=== PATIENT | male | born 1980 | race Caucasian/White ===

== ENCOUNTER 2017-09-05 19:33 | Emergency (ER) | payer MEDICARE, MEDICAID ==
[2017-09-05] MEDS ORDERED: Bacitracin Oint 1 GM U/D Packet TOP ONE (20:13)
[2017-09-05] MEDS ORDERED: Diphtheria,Pertussis(Acell),Tetanus Vaccine 0.5 ML SDV IM ONE (21:15)
--- NOTE | 2017-09-05 21:23 | EDM.PDOC ---
ED HPI GENERAL MEDICAL PROBLEM - General Chief Complaint: Laceration Stated Complaint: INDEX FINGER LACERATION Time Seen by Provider: 09/05/17 20:11 Source of Information: Reports: Patient History Limitations: Reports: No Limitations - History of Present Illness INITIAL COMMENTS - FREE TEXT/NARRATIVE: laceration; left 1st finger; this is a 37 year old male presents to ER with and Son, today while in town, window got rolled down, unable to roll back up. He was putting plastic over window til they could get home. He was cutting plastic with a case cutter, slipped and cut the first finger. no other injury. laceration; one hour ago last tet2010. 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 Degenerative Disc Disease - Infectious Disease History Infectious Disease History: Reports: Chicken Pox - Past Surgical History Neurological Surgical History: Reports: Other (See Below) Other Neurological Surgeries/Procedures: decompression Musculoskeletal Surgical History: Reports: None Social & Family History - Tobacco Use Smoking Status *Q: Current Every Day Smoker Years of Tobacco use: 20 Packs/Tins Daily: 0.5 Second Hand Smoke Exposure: Yes - Caffeine Use Caffeine Use: Reports: Coffee, Soda - Recreational Drug Use Recreational Drug Use: No - Living Situation & Occupation Living situation: Reports: , with Family (lives with and children in [place]. disabled due to "unable to feel feet" from sciatica.) Occupation: Disabled ED ROS GENERAL - Review of Systems Review Of Systems: See Below Constitutional: Reports: No Symptoms, Other (finger pain and injury) Skin: Reports: Wound Neurological: Reports: No Symptoms Psychiatric: Reports: No Symptoms Hematologic/Lymphatic: Reports: No Symptoms Immunologic: Reports: No Symptoms ED EXAM, SKIN/RASH Exam: See Below Exam Limited By: No Limitations General Appearance: Alert, WD/WN, No Apparent Distress Head: Atraumatic, Normocephalic Neck: Normal Inspection, Supple, Non-Tender, Full Range of Motion Respiratory/Chest: No Respiratory Distress Cardiovascular: Normal Peripheral Pulses Peripheral Pulses: 2+: Radial (L), Radial (R) Extremities: Normal Inspection, Normal Range of Motion, Normal Capillary Refill , Other (laceration to left 1st finger.) Neurological: Alert, Oriented, Normal Cognition, No Motor/Sensory Deficits Psychiatric: Normal Affect, Normal Mood Skin: Warm, Wound/Incision Location, Skin: Upper Extremity, Left, Other (left first finger) Characteristics: Linear Associated features: Tenderness Lymphatic: No Adenopathy ED SKIN PROCEDURES - Laceration/Wound Repair Left Anterior Midline Finger Lac/Wound length In cm: 3 Appearance: Subcutaneous, Linear, Clean Distal NVT: Neuro & Vascular Intact, No Tendon Injury Anesthetic Type: Local Local Anesthesia - Lidocaine (Xylocaine): 1% Plain Local Anesthetic Volume: 2cc Skin Prep: Chlorhexidine (Hibiciens), Saline, Sterile Drape Saline Irrigation (cc's): 20 Exploration/Debridement/Repair: Wound Explored Closed with: Sutures Suture Size: 4-0 # of Sutures: 14 Suture Type: Prolene Sterile Dressing Applied: Provider Tetanus Status Addressed: Yes Complications: No Course - Vital Signs Last Recorded V/S: Last Vital Signs Temp 36.6 C 09/05/17 20:22 Pulse 71 09/05/17 20:22 Resp 16 09/05/17 20:22 BP 107/56 L 09/05/17 20:22 Pulse Ox 98 09/05/17 20:22 - Orders/Labs/Meds Orders: Active Orders 24 hr Category Date Time Status Vaccines to be Administered [RC] PER UNIT ROUTINE Care 09/05/17 21:15 Active Meds: Medications Discontinued Medications Generic Name Dose Route Start Last Admin Trade Name Freq PRN Reason Stop Dose Admin Bacitracin 1 dose 09/05/17 20:13 09/05/17 20:35 Bacitracin Oint 1 Gm TOP 09/05/17 20:14 1 dose ONETIME ONE Administration Diphtheria/Tetanus/Acell Pertussis 0.5 ml 09/05/17 21:15 09/05/17 21:30 Adacel IM 09/05/17 21:16 0.5 ml .ONCE ONE Administration Lidocaine HCl 5 ml 09/05/17 20:12 09/05/17 20:35 Xylocaine-Mpf 1% INJECT 09/05/17 20:13 5 ml ONETIME ONE Administration - Re-Assessments/Exams Free Text/Narrative Re-Assessment/Exam: 09/05/17 laceration repair; 3 cm, 14 sutures, bandage applied Tdap given in ER wound care discussed, rtc or er if has any concerns or worsen of sx suture out in 10 days Departure - Departure Time of Disposition: 21:41 Disposition: Home, Self-Care 01 Condition: Good Clinical Impression: Broken skin Laceration of finger of left hand Qualifiers: Encounter type: initial encounter Finger: index finger Damage to nail status: without damage Foreign body presence: without foreign body Qualified Code(s): S61.211A - Laceration without foreign body of left index finger without damage to nail, initial encounter - Discharge Information Instructions: Laceration Care, Adult, [id number] Referrals: PCP,None [Primary Care Provider] - Forms: ED Department Discharge Care Plan Goals: laceration of finger -keep in padded bandage for 2 days, then bandaide -apply bacitracin ointment to wound two times a day as needed -Keflex 500mg take two times a day for 7 days -Percocet 5-325mg take one tablet every 4 to 6 hr as needed for pain -take over the counter tylenol or motrin as directed for less severe pain wound check in 3 days. sutures out in 10 days return to clinic or ER for any increased pain, redness, bleeding, odor, rash or not improved. - Problem List & Annotations (1) Laceration of finger of left hand SNOMED Code(s): 438024600, 073872780 Code(s): S61.219A - LACERATION W/O FB OF UNSP FINGER W/O DAMAGE TO NAIL, INIT Status: Acute Priority: High Qualifiers: Encounter type: initial encounter Finger: index finger Damage to nail status: without damage Foreign body presence: without foreign body Qualified Code(s): S61.211A - Laceration without foreign body of left index finger without damage to nail, initial encounter - Problem List Review Problem List Initiated/Reviewed/Updated: Yes - My Orders Last 24 Hours: My Active Orders 09/05/17 21:15 Vaccines to be Administered [RC] PER UNIT ROUTINE - Assessment/Plan Last 24 Hours: My Active Orders 09/05/17 21:15 Vaccines to be Administered [RC] PER UNIT ROUTINE Plan: laceration of finger -keep in padded bandage for 2 days, then bandaide -apply bacitracin ointment to wound two times a day as needed -Keflex 500mg take two times a day for 7 days -Percocet 5-325mg take one tablet every 4 to 6 hr as needed for pain -take over the counter tylenol or motrin as directed for less severe pain -given Tdap 0.5ml im for tetenus prevention. wound check in 3 days. sutures out in 10 days return to clinic or ER for any increased pain, redness, bleeding, odor, rash or not improved.
== END 2017-09-05 21:41 | disposition home or self-care (01) ==
LOC: JP.ED 19:33
DX: S61.211A Laceration without foreign body of left index finger without damage to nail, initial encounter (principal); Z23 Encounter for immunization; Z88.0 Allergy status to penicillin; F17.210 Nicotine dependence, cigarettes, uncomplicated; W26.9XXA Contact with unspecified sharp object(s), initial encounter; Y92.009 Unspecified place in unspecified non-institutional (private) residence as the place of occurrence of the external cause
CPT/HCPCS: 12002; 90471; 90715; 99283-25

== ENCOUNTER 2019-07-12 19:11 | Emergency (ER) | payer MEDICAID, MEDICARE ==
[~2019-07-12 19:11] MED LIST: Ketorolac 10 MG Tab PO SCH
[2019-07-12] MEDS ORDERED: Ketorolac 60 MG/2 ML SDV IM ONE (20:56)
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
--- NOTE | 2019-07-12 22:38 | CRLCR ---
INDICATION: Fall, left chest pain COMPARISON: None TECHNIQUE: Frontal view of the chest and 2 views of the left ribs FINDINGS/IMPRESSION: No displaced rib fracture is demonstrated. The lungs are clear. There is no pleural effusion or pneumothorax. The cardiomediastinal silhouette is normal. Dictated by Dave Crawford MD @ Jul 12 2019 10:19PM Signed by Dr. Dave Crawford @ Jul 12 2019 10:36PM
[2019-07-12] MEDS ORDERED: Ketorolac 10 MG Tab ONE (22:52)
== END 2019-07-12 22:45 | disposition home or self-care (01) ==
LOC: JP.ED 19:11
DX: S20.212A Contusion of left front wall of thorax, initial encounter (principal); R06.02 Shortness of breath; F17.210 Nicotine dependence, cigarettes, uncomplicated; Z88.0 Allergy status to penicillin; W01.10XA Fall on same level from slipping, tripping and stumbling with subsequent striking against unspecified object, initial encounter
CPT/HCPCS: 71101; 96372; 99283; A9270; J1885